=== PATIENT | female | born 1985 | race Caucasian/White ===

== ENCOUNTER 2024-06-04 11:02 | Outpatient (AMB) | payer BC, SELFPAY ==
--- NOTE | 2024-06-04 11:21 | A.OFFPC_ITS ---
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 - [facility] Last office visit/CPE/labs - Aug, 2023/ Last physical exam was over a year ago Acute issue(s) - None Past Medical History - Bipolar 2 disorder Surgical History - None Family History - Dad: Cardiovascular disease - Mom: DM Social History - Attempted cigarette smoking but never a regular smoker. Does not drink alcohol. Vape cannabis daily - Has been making healthy dietary choice s. Active but does not exercise. Generally sleep well Health maintenance - Last eye exam was 1-2 years ago. Encou raged to follow up with Ophthalmology for routine eye exam - Last dental visit was within a year - Last tetanus vaccine was possibly over 10 years ago; received Tdap vaccine today - She is up-to-date on the flu vaccine - Last pap smear test unknown but last v isit was in 11/2022 with [facility] environmental monitoring technician. Advised to follow up with her environmental monitoring technician to update pap smear test Specialists - Psychiatrist with [facility] - followed every 6 months - [facility] environmental monitoring technician [facility] Surgical History (Updated 06/04/24 @ 11:28 by Shaina Bynum CMA) No pertinent past surgical history Family History (Updated 06/04/24 @ 11:32 by Shaina Bynum CMA) Other FH: mental illness Substance abuse Social History (Updated 06/04/24 @ 11:29 by Shaina Bynum CMA) Housing: Apartment Alcohol intake: current Patient Tobacco Use Status: Former Tobacco user Years Smoked: tried it once e-Cigarette/Vaping Use: Currently Using Second Hand Smoke Exposure: No Substance Use Type: Marijuana Cognitive needs: No Hearing needs: No Vision needs: No Questionnaire PHQ-9 Over the last 2 weeks, how often have you been bothered by any of the following problems? 1. Little interest or pleasure in doing things: several days 2. Feeling down, depressed, or hopeless: several days 3. Trouble falling or staying asleep, or sleeping too much: several days 4. Feeling tired or having little energy: several days 5. Poor appetite or overeating: not at all 6. Feeling bad about yourself - or that you are a failure or have let yourself or your family down: more than half the days 7. Trouble concentrating on things, such as reading the newspaper or watching television: not at all 8. Moving or speaking so slowly that other people could have noticed. Or the opposite - being so fidgety or restless that you have been moving around a lot more than usual: not at all 9. Thoughts that you would be better off or of hurting yourself in some way: not at all Total score: 6 Depression Screening Interpretation: Positive Depression Screening Follow-up: Existing condition and In treatment Depression Screening Done: Yes 18753 - PHQ-9 Billing: Yes Source: Developed by Drs. Peter Ford, Debi Jean, Abdelrahman Barone and colleagues, with an educational akanksha from [employer]. Thrive Questionnaire Date Thrive assessed: 06/02/24 I am a: Patient What is your living situation today?: I have a place to live, but I am worried about losing it in the future Within the past 12 months, did the food you bought not last and you didn't have the money to get more?: Never true Within the past 12 months, did you worry whether your food would run out before you got money to buy more?: Never true Do you have trouble paying for medicines?: No Do you have trouble getting transportation to medical appointments?: No Do you have trouble paying your heating and electricity bill?: Yes Do you have trouble taking care of your child, family member or friend?: No Do you have trouble with day-to-day activities such as bathing, preparing meals, shopping, managing finances, etc.?: No Are you currently unemployed and looking for a job?: No Are you interested in more education?: Yes Please select the resources that you would like help with: None Currently or been in a relationship where the following occur: No concerns reported THRIVE Score: 2 AUDIT C Alcohol Use Questionnaire (AUDIT-C) 1. How often do you have a drink containing alcohol?: Monthly or less 2. How many drinks containing alcohol do you have on a typical day when you are drinking?: 1 or 2 3. How often do you have six or more drinks on one occasion?: Never Total Score: 1 Score Reviewed/Action Taken: Yes LISA-7 AMB Questionnaire LISA-7 Date LISA - 7 assessed: 06/04/24 Feeling nervous, anxious, or on edge: 1 = Several days Not being able to stop or control worryin = Several days Worrying too much about different things: 1 = Several days Trouble relaxin = Several days Being so restless that it is hard to sit still: 1 = Several days Becoming easily annoyed or irritable: 1 = Several days Feeling afraid as if something awful might happen: 0 = Not at all Total LISA-7 score (0-4 normal; 5-9 mild; 10-14 moderate; 15-21 severe): 6 Source: Developed by Drs. Peter Ford, Debi Jean, Abdelrahman Barone and colleagues, with an educational akanksha from [employer]. LISA-7 Assessment Billing LISA-7 Assessment Tool: LISA-7 Assessment 58940 Physical exam (Primary Care) Vital Signs: Last Vital Signs Pulse 71 06/04/24 11:32 Resp 12 06/04/24 11:32 BP 108/74 06/04/24 11:32 Pulse Ox 99 06/04/24 11:32 Oxygen Delivery Method Room Air 06/04/24 11:32 BMI result Body Mass Index 28.2 Tobacco/Smoking Status: Tobacco use Status Tobacco use date assessed 06/04/24 06/04/24 11:30 Patient Tobacco Use Status Former Tobacco user 06/04/24 11:30 e-Cigarette/Vaping Use Currently Using 06/04/24 11:30 PHQ-9: PHQ-9 Score PHQ-9: Total score 6 06/04/24 11:43 Depression Screening Interpretation: Positive Depression Screening Follow-up: Existing condition and In treatment Thrive Assessment: Date of Thrive Assessment Date Thrive assessed 06/02/24 06/04/24 11:24 Currently or been in a relationship where the following occur: No concerns reported Immunizations Boostrix Tdap 2.5 Lf unit-8 mcg-5 Lf/0.5 mL intramuscular syringe Performing Provider: Clau Copeland CNP Performing Location: [facility] Administered by: Luis Thomas RN on 06/04/24 12:13 Dose Route Admin Location Dispensed Lot Number Expiration Date NDC Curriculum Development Coordinator 0.5 mL IM Left Deltoid 0.5 mL [id number] 07/10/26 05518-707-48 [employer] VIS Given Date VIS Provided VIS Publication Date 06/04/24 Single Vaccine 20 Eligibility Eligibility Date Funding Source Not [facility] Eligible 06/04/24 Private Coding Level of Care Code New Pt Prev Care 18-39yr(92745 Diagnoses Normal physical examination, routine Z00.00 Bipolar II disorder F31.81 Engages in vaping Z72.89 Laboratory tests ordered as part of a complete physical exam (CPE) Z00.00 Additional Codes LISA-7 Assessment Billing - LISA-7 Assessment Tool: LISA-7 Assessment 56189 ([id number]) PHQ-9 - 92719 - PHQ-9 Billing: Yes ([id number]) Assessment & Plan Assessment & Plan (1) Normal physical examination, routine: Code(s): Z00.00 - Encounter for general adult medical examination without abnormal fin dings Category: Medical Plan: No signficant functional limitation noted. Healthy diet and routine exercise encouraged. Advised to get fasting blood work done follow-up for telehealth visit in 2-3 weeks for labs review. Return sooner with symptoms or concerns. Verbalized understanding and agreed with treatment plan. (2) Bipolar II disorder: Code(s): F31.81 - Bipolar II disorder Category: Medical Plan: Controlled mood. PHQ-9 and LISA-7 scores revealed mild depression and anxiety. Continue current treatment regimen. Follow-up with psychiatrist as planned. Verbalized understanding and agreed with treatment plan. (3) Engages in vaping: Code(s): Z72.89 - Other problems related to lifestyle Category: Medical Plan: She engages daily oil-based cannabis vaping. Instructed on the health risks and complications of vaping and encouraged to stop. Also encouraged to stop using cannabis due to its potential to worsen her bipolar symptoms. Follow-up as needed. Verbalized understanding and agreed with the plan. (4) Laboratory tests ordered as part of a complete physical exam (CPE): Code(s): Z00.00 - Encounter for general adult medical examination without abnormal findings Category: Medical Plan: Fasting labs ordered as part of a complete physical exam. Advised to fast for at least 10 hours before getting labs drawn. May drink water Verbalized understanding and agreed with treatment plan. Orders: Orders TDaP Immunization Today Z23 - Encounter for immunization Medications: New Boostrix Tdap (diphth,pertus(acell),tetanus) 0.5 mL IM ONCE 0.5 mL 0RF NS Z23 - Encounter for immunization
[2024-06-04 11:32] VITALS: BP 108/74; PULSE 71; RESP 12; O2SAT 99; BMI 28.2
--- OUTSIDE RECORDS SUMMARY | 2024-06-04 11:59 | XMS_ITS | Clinical Summary ---
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 Active ARIPiprazole (ABILIFY) 10 mg tablet Take 1 tablet (10 mg total) by mouth 1 (one) time each day. Active BUPROPION HCL ORAL Take by mouth. Activ e Active Problems Problem Noted Date Diagnosed Date PCOS (polycystic ovarian syndrome) 02/05/2024 B12 deficiency 12/29/2019 Overview (02/05/2024): 01/26/2020 B12 level WNL Papanicolaou smear of cervix with positive high risk human papilloma virus (HPV) test 02/22/2019 Anxiety 01/17/2017 Immunizations Name Administration Dates Next Due Hep B, Unspecified 09/18/2016 Influenza Quadravalent, MDCK , 0.5ml, preservative free (Flucelvax) 6mo and older 12/29/2019,01/06/2019 Influenza Quadravalent, MDCK , 0.5ml, with preservative (Flucelvax) 6mo and older 01/07/2018,01/09/2017 Influenza trivalent, 0.5mL, preservative free (Fluarix; FluLaval; Fluzone) ages 6mo and older (Afluria) 3 years and older 01/05/2015,02/02/2014 Measles 09/18/2016 Mumps 09/18/2016 PPD Test 01/18/2015,12/16/2012 Rubella 09/18/2016 Tdap Tetanus diptheria acell ular pertussis (Boostrix; Adacel) 7yo and older 01/26/2020,01/05/2015 Varicella live (Varivax) 12mo and older 09/19/19 17 Surgical History Surgery Date Site/Laterality Comments OTHER SURGICAL HISTORY PROCEDURE: RETREAT ROOT CANAL MOLAR WISDOM TOOTH EXTRACTION PROCEDURE: HISTORICAL WISDOM TEETH EXTRACTION; COMMENT: all 4 Medical History Medical History Date Comments Historical Medical DX DX:Inferti lity Female hirsutism DX:Female hirsu tism PCOS (polycystic ovarian syndrome) DX:PCOS (polycystic ovarian syndrome) Anxiety DX:Anxiety B12 deficiency DX:B12 deficienc y Heart burn DX:Heart burn; C OMMENT: prilosec otc Family History Medical History Relation Name Comments Pancreatic cancer Aunt maternal aunt mother's side Dx mid-50's No Known Problems Brother No Known Problems Daughter No Known Problems Father Alzheimer's disease Maternal Grandfather Diabetes Maternal Grandmother pills Diabetes Mother trulia, pills Other: anxiety Mother Other: fibroids Mother Rheum arthritis Mother No Known Problems Paternal Grandfather Multiple sclerosis Paternal Grandmother Other: anxiety Sister Other: pcos Sister Diabetes Uncle 1 maternal Diabetes Uncle 2 maternal Breast cancer Neg Hx Cervical cancer Neg Hx Colon cancer Neg Hx Ovarian cancer Neg Hx Prostate cancer Neg Hx Uterine cancer Neg Hx Relation Name Status Comments Aunt maternal aunt Brother Alive 1 younger broth er, healthy Daughter Alive Healthy Father Alive good health Maternal Grandfather UK Maternal Grandmother Alive UK Mother Alive good health Paternal Grandfather Alive healthy Paternal Grandmother Alive MS Sister Alive 1 older sister, healthy Uncle 1 maternal Alive Uncle 2 maternal Social History Tobacco Use Types Packs/Day Years Used Date Smoking Tobacco: Never Smokeless Tobacco: Never Alcohol Use Standard Drinks/Week Comments Yes 1.7 (1 standard drink = 0.6 oz p ure alcohol) Comments Unknown Sex and Gender Information Value Date Recorded Sex Assigned at Not on file Legal Sex Female 3:40 PM EST Gender Identity Not on file Sexual Orientation Not on file Obstetrics History Last Filed Vital Signs Vital Sign Reading Time Taken Comments Blood Pressure 100/80 11/18/2023 8:27 AM EDT Pulse 72 11/18/2023 8:27 AM EDT Temperature - - Respiratory Rate - - Oxygen Saturation - - Inhaled Oxygen Concentration - - Weight 72.6 kg (160 lb) 11/18/2023 8:27 AM EDT Height 160 cm (5' 3 ) 11/18/2023 8:27 AM EDT Body Mass Index 28.34 11/18/2023 8:27 AM EDT Plan of Treatment Health Maintenance Due Date Last Done Comments Hepatitis B Vaccines (2 of 3 - 19+ 3-dose series) 10/16/2016 09/18/2016 Depression Screening 03/20/2022 Social Influencers of Health Screening 03/20/2022 COVID-19 Vaccine ( season) 2023 07/07/2020, 06/09/2020 Influenza Vaccine (#1) 2023 , 01/06/2019, 01/07/2018, Additional history exists Cervical Cancer Screening: HPV 03/05/2026 03/05/2021 Cholesterol Screening (Lipid Panel) 02/28/2028 02/27/2023 DTaP,Tdap,and Td Vaccines (3 - Td or Tdap) 01/25/2030 01/26/2020, 01/05/2015 Varicella Vaccines Aged Out 09/18/2016 No longer eligible based on patient's age to complete this topic HIV Screening Completed 11/20/2019 Hepatitis C Screening Completed 08/02/2022, 020 HIB Vaccines Aged Out No longer eligi ble based on patient's age to complete this topic HPV Vaccines Aged Out No longer eligi ble based on patient's age to complete this topic Hepatitis A Vaccines Aged Out No long er eligible based on patient's age to complete this topic IPV Vaccines Aged Out No longer eligi ble based on patient's age to complete this topic MMR Vaccines Aged Out No longer eligi ble based on patient's age to complete this topic Meningococcal ACWY Vaccine Aged Out N o longer eligible based on patient's age to complete this topic Meningococcal B Vacine Aged Out No lo nger eligible based on patient's age to complete this topic Pneumococcal Vaccine: Pediatrics (0 to 5 Years) and At-Risk Patients (6 to 64 Years) Aged Out No longer eligible based on patient's age to complete this topic RSV Immunization Patients Under 20 months Aged Out No longer eligible based on patient's age to complete this topic Procedures Procedure Name Priority Date/Time Associated Diagnosis Comments LIPID PANEL Routine 02/27/2023 HPV Routine 03/05/2021 HEPATITIS C SCREENING Routine 11/20/2019 HIV SCREENING Routine 11/20/2019 from Last 3 Months or Most Recently Relevant to Health Maintenance Results * (ABNORMAL) Lipid panel (02/27/2023) [facility] LDL/HDL Ratio 5(A) 0 - 4 Triglycerides 96 0 - 150 mg/dL Cholesterol 226(A) 0 - 200 mg/dL HDL 50 >=40 mg/dL LDL Cholesterol 157(A) 0 - 100 mg/dL Blood Venous blood specimen / Unknown [facility] Provider LAB BLOOD ORDERABLES Marika l Result * Cervical Cancer Screening: HPV (03/05/2021) [facility] Cervical Cancer Screening: HPV Negative abstracted [facility] Provider HEALTH MAINTENANCE Final Result * HIV Screening (11/20/2019) [facility] HIV Screening abstracted [facility] Provider HEALTH MAINTENANCE Final Result * Hepatitis C Screening (11/20/2019) [facility] Hepatitis C Screening abstracted [facility] Provider HEALTH MAINTENANCE Final Result from Last 3 Months or Most Recently Relevant to Health Maintenance Insurance [place] [facility]
== END 2024-06-04 12:21 | disposition home or self-care (01) ==
PROVIDERS: Visit Provider Nurse Practitioner Family
DX: Z00.00 Encounter for general adult medical examination without abnormal findings (principal); F31.81 Bipolar II disorder; Z72.89 Other problems related to lifestyle; Z23 Encounter for immunization

== ENCOUNTER → 2024-06-04 11:02 | Outpatient (BNVA) | payer BC, SELFPAY | PROVIDERS: Visit Provider Nurse Practitioner Family | DX: Z00.00 Encounter for general adult medical examination without abnormal findings (principal); Z23 Encounter for immunization; F31.81 Bipolar II disorder; Z72.89 Other problems related to lifestyle | CPT/HCPCS: 90471; 90715; 96127 ==

== ENCOUNTER 2024-06-10 13:21 | Outpatient (REF) | payer BC, SELFPAY ==
[2024-06-10 14:12] LABS: MANUAL DIFF FLAG NO
--- OUTSIDE RECORDS SUMMARY | 2024-06-10 14:14 | XMS_ITS | Clinical Summary ---
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 Name Role Phone Unavailable Primary Care Provider [...] 11/18/2023 8:27 AM EDT Plan of Treatment Upcoming Encounters Date Type Department Care Team ([facility] st Contact Info) Description 09/23/2024 9:45 AM EDT Office Visit Obstetrics and Gynecology - [place] [address] [place] [id number] Edwin Paz, [facility] [address] [place] [id number] Health Maintenance Due Date Last Done Comments Hepatitis B Vaccines (2 of 3 - 19+ 3-dose series) 10/16/2016 09/18/2016 Depression Screening 03/20/2022 Social Influencers of Health Screening 03/20/2022 COVID-19 Vaccine ( - season) 2023 07/07/2020, 06/09/2020 Influenza Vaccine (#1) [...] Maintenance Results * (ABNORMAL) Lipid panel (02/27/2023) Pathologist [facility] LDL/HDL Ratio 5(A) 0 - 4 Triglycerides 96 0 - 150 mg/dL Cholesterol 226(A) 0 - 200 mg/dL HDL 50 >=40 mg/dL LDL Cholesterol 157(A) 0 - 100 mg/dL Blood Venous blood specimen / Unknown Historical Provider LAB BLOOD ORDERABLES Marika l Result * Cervical Cancer Screening: HPV (03/05/2021) Pathologist [facility] Cervical Cancer Screening: HPV Negative abstracted Historical Provider HEALTH MAINTENANCE Final Result * HIV Screening (11/20/2019) Pathologist [facility] HIV Screening abstracted Historical Provider HEALTH MAINTENANCE Final Result * Hepatitis C Screening (11/20/2019) Hepatitis C Screening abstracted us Historical Provider HEALTH MAINTENANCE Final Result from Last 3 Months or Most Recently Relevant to Health Maintenance [place] [facility] [[email or web address]]
[2024-06-10 14:18] LABS: Basophils Percent Auto 0.8 % (0-2); Eosinophils Absolute Auto 0.1 X10*3/uL (0.0-0.4); Eosinophils Percent Auto 1.7 % (0-4); Hematocrit 40.2 % (37.0-47.0); Hemoglobin 13.9 g/dl (12.0-16.0); Imm Gran Abs Auto 0.01 X10*3/uL (0.00-0.03); Imm Gran Pct Auto 0.2 % (0.0-0.4); Lymphocytes Absolute Auto 1.8 X10*3/uL (1.2-4.9); Lymphocytes Percent Auto 34.5 % (20-40); Mean Corpuscular HGB Conc 34.6 g/dl (31.0-35.0); Mean Corpuscular Hemoglobin 29.6 pg (27.0-33.0); Mean Corpuscular Volume 85.7 fL (80.0-98.0); Mean Platelet Volume 10.6 fL (9.4-12.3); Monocytes Absolute Auto 0.4 X10*3/uL (0.1-1.2); Monocytes Percent Auto 8.1 % (2-11); Neutrophils Absolute Auto 2.9 x10*3/uL (2.0-8.3); Neutrophils Percent Auto 54.7 % (45-73); Platelet Count 234 X10*3/uL (160-400); Red Blood Count 4.69 X10*6/uL (4.20-5.50); Red Cell Distribution Width 11.8 % (11.0-16.0); White Blood Count 5.3 X10*3/uL (4.8-10.8)
[2024-06-10 18:29] LABS: Appearance Urine Cloudy; Color Urine Yellow; Glucose Urine UA Negative (Negative); Leukocyte Esterase Urine Negative (Negative); Nitrite Urine Negative (Negative); PH 8.5 (5.0-9.0); Specific Gravity - Urine 1.025 (1.005-1.025); Urine Blood Negative (Negative); Urine Ketones Negative (Negative); Urine Protein Trace mg/dL (Neg-Trace)
[2024-06-10 18:31] LABS: Creatinine Urine 166.02 mg/dL; Microalbum/Creatinine Ratio Ur 5.4 ug/mg cr (<30)
[2024-06-10 18:44] LABS: Alanine Aminotransferase 30 U/L (0-31); Albumin Level 4.3 g/dL (3.5-5.0); Alkaline Phosphatase 62 U/L (39-117); Anion Gap 11 (12-20); Aspartate Amino Transferase 27 U/L (5-31); Bilirubin Total 0.7 mg/dL (0.0-1.0); Blood Urea Nitrogen 7 mg/dL (9-16); Calcium 9.3 mg/dL (8.4-10.2); Carbon Dioxide 23 mmol/L (22-29); Chloride 109 mmol/L (96-108); Cholesterol 188 mg/dL (<200); Estimated Glomerular Filt Rate > 60; Glucose Fasting 83 mg/dL (60-99); HDL Cholesterol 42 mg/dL (>40); LDL Cholesterol Calculated 131 mg/dL (<100); Potassium 4.1 mmol/L (3.3-5.1); Sodium 139 mmol/L (135-145); Total Protein 7.5 g/dL (6.5-8.0); Triglycerides 79 mg/dL (<150)
[2024-06-10 18:51] LABS: TSH reflex Free T4 1.67 uIU/mL (0.32-4.0)
== END 2024-06-10 13:22 | disposition home or self-care (01) ==
LOC: HO.WFDLDS 13:21
PROVIDERS: Visit Provider Nurse Practitioner Family
DX: Z00.00 Encounter for general adult medical examination without abnormal findings (principal); Z13.6 Encounter for screening for cardiovascular disorders
CPT/HCPCS: 36415; 80053; 80061; 81003; 82043; 82570; 84443; 85025

== ENCOUNTER 2024-06-21 11:59 | Outpatient (AMB) | payer BC, SELFPAY ==
--- NOTE | 2024-06-21 11:43 | A.OFFPC_ITS ---
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 Is last menstrual period known: No (IUD) Post menopausal: No Patient : No Allergies lamotrigine [From Lamictal] Allergy (Intermediate, Verified 06/21/24 11:45) Rash sertraline [From Zoloft] Adverse Reaction (Intermediate, Verified 06/21/24 1 1:45) Diarrhea Tobacco use date assessed: 06/21/24 Dental Screening Dental Screen Date: 06/21/24 Did you have a dental visit in the last 12 months?: Yes Did you have a dental problem in the last 6 months where you did not have access to dental care?: No Was dental information given to patient?: Patient has dentist HPI HPI Comments History of Present Illness0 Details 39-year-old female [facility] visit for review of recent lab results. She admits to taking her medications as prescribed without adverse reactions. She offers no complaints and denies acute symptoms at this time. [facility] Surgical History (Updated 06/04/24 @ 11:28 by Shaina Bynum CMA) No pertinent past surgical history Family History (Updated 06/04/24 @ 11:32 by Shaina Bynum CMA) Other FH: mental illness Substance abuse Social History (Updated 06/04/24 @ 11:29 by Shaina Bynum CMA) Housing: Apartment Alcohol intake: current Patient Tobacco Use Status: Former Tobacco user Years Smoked: tried it once e-Cigarette/Vaping Use: Currently Using Second Hand Smoke Exposure: No Substance Use Type: Marijuana Patient : No service: No Current occupational status: employed Current occupation: [employer] Current occupational exposures/hazards: Yes Cognitive needs: No Hearing needs: No Vision needs: No Questionnaire Thrive Questionnaire Date Thrive assessed: 06/02/24 I am a: Patient What is your living situation today?: I have a place to live, but I am worried about losing it in the future Within the past 12 months, did the food you bought not last and you didn't have the money to get more?: Never true Within the past 12 months, did you worry whether your food would run out before you got money to buy more?: Never true Do you have trouble paying for medicines?: No Do you have trouble getting transportation to medical appointments?: No Do you have trouble paying your heating and electricity bill?: Yes Do you have trouble taking care of your child, family member or friend?: No Do you have trouble with day-to-day activities such as bathing, preparing meals, shopping, managing finances, etc.?: No Are you currently unemployed and looking for a job?: No Are you interested in more education?: Yes Please select the resources that you would like help with: None Currently or been in a relationship where the following occur: No concerns reported THRIVE Score: 2 LISA-7 AMB Questionnaire LISA-7 Date LISA - 7 assessed: 06/04/24 Source: Developed by Drs. Peter Ford, Debi Jean, Abdelrahman Barone and colleagues, with an educational akanksha from [employer]. Review of Systems Const Details: Denies chills, Denies fatigue, Denies fever(s), Denies headache(s) and Denies weakness Cardiac Denies chest pain, Denies claudication, Denies leg edema, Denies lightheadedness, Denies palpitations, Denies dyspnea, Denies dyspnea on exertion, Denies orthopnea and Denies other (Loss of consciousness) Resp Denies cough, Denies excessive phlegm production, Denies dyspnea, Denies dyspnea on exertion, Denies snoring and Denies wheezing Physical exam (Primary Care) Tobacco/Smoking Status: Tobacco use Status Tobacco use date assessed 06/21/24 06/21/24 11:47 Patient Tobacco Use Status Former Tobacco user 06/21/24 11:47 e-Cigarette/Vaping Use Currently Using 06/21/24 11:47 Thrive Assessment: Date of Thrive Assessment Date Thrive assessed 06/02/24 06/21/24 11:47 Currently or been in a relationship where the following occur: No concerns r eported Const Other: Telehealth visit. No physical exam. Telehealth Telehealth Telehealth Platform: Telephone Location of provider rendering services: practice address Location of patient: address on file Patient Identification confirmed using: Name, : Yes Telehealth method: voice only Patient verbally consented to treatment: Yes Patient verbally consented to billing insurance company: Yes Patient informed of any privacy concerns related to visit: Yes Coding Level of Care Code Tele Est Pt Level 3 (62189) Diagnoses Elevated LDL cholesterol level E78.00 Time Spent (min) 10 Assessment & Plan Assessment & Plan (1) Elevated LDL cholesterol level: Code(s): E78.00 - Pure hypercholesterolemia, unspecified Category: Medical Plan: Recent LDL level is slightly elevated, 131. Advised to limit foods high in saturated fat and avoid foods high in trans fat. Routine exercise encouraged. Advised to fast for 10-12 hours, may drink water only, and perform lipid panel blood work 2-3 days before next visit. Follow-up for telehealth visit in 3 months or return sooner with symptoms or concerns. Verbalized understanding and agreed with treatment plan. Orders: Orders Lipid Panel 3 Months E78.00 - Pure hypercholesterolemia, unspecified
--- OUTSIDE RECORDS SUMMARY | 2024-06-21 14:06 | XMS_ITS | Clinical Summary ---
Author Organization [facility] [address] 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 Apprentice Name Role Phone Unavailable Primary Care Provider [...] Upcoming Encounters Date Type Department Care Team ([facility] st Contact Info) Description 09/23/2024 9:45 AM EDT Office Visit Obstetrics and Gynecology - [place] [address] [place] [id number] Edwin Paz, [facility] [address] [place] [id number] Health Maintenance Due Date Last Done Comments [...] Results * (ABNORMAL) Lipid panel (02/27/2023) Pathologist [facility] LDL/HDL Ratio 5(A) 0 - 4 Triglycerides 96 0 - 150 mg/dL Cholesterol 226(A) 0 - 200 mg/dL HDL 50 >=40 mg/dL LDL Cholesterol 157(A) 0 - 100 mg/dL Blood Venous blood specimen / Unknown Historical Provider LAB BLOOD ORDERABLES Marika l Result * Cervical Cancer Screening: HPV (03/05/2021) Pathologist [facility] Cervical Cancer Screening: HPV Negative abstracted Historical Provider HEALTH MAINTENANCE Final Result * HIV Screening (11/20/2019) Pathologist [facility] HIV Screening abstracted Historical Provider HEALTH MAINTENANCE Final Result * Hepatitis C Screening (11/20/2019) Hepatitis C Screening abstracted us Historical Provider HEALTH MAINTENANCE Final Result from Last 3 Months or Most Recently Relevant to Health Maintenance Insurance MEDICAID - [place] [facility]
== END 2024-06-21 12:06 | disposition home or self-care (01) ==
LOC: HO.HMCFM 11:59
PROVIDERS: PCP Nurse Practitioner Family; Visit Provider Nurse Practitioner Family
DX: E78.00 Pure hypercholesterolemia, unspecified (principal)

== ENCOUNTER → 2024-06-21 11:59 | Outpatient (BNVA) | payer BC, SELFPAY | PROVIDERS: PCP Nurse Practitioner Family; Visit Provider Nurse Practitioner Family | DX: E78.00 Pure hypercholesterolemia, unspecified (principal) ==